=== PATIENT | male | born 1955 | race Caucasian/White ===

== ENCOUNTER → 2017-06-14 | Outpatient (CLI) | payer OTHER ==
[2015-08-31 11:17] VITALS: BP 122/83
[~2017-06-14] MED LIST: APIX5TAB PO; ASPI-630 PO; CETI10TA22 PO; FAMO-63 PO; FURO-68 PO; LEVO100T5 PO; LISI2.5T PO; METO25TA9 PO
== END | disposition home or self-care (01) ==
LOC: PCVCCLINIC 14:30
PROVIDERS: ATTEND Internal Medicine
DX: E78.5 Hyperlipidemia, unspecified (principal); I48.91 Unspecified atrial fibrillation
CPT/HCPCS: 80061